=== PATIENT | female | born 1940 ===

== ENCOUNTER 2025-01-15 06:11 | Day surgery (SDC) | payer MEDICARE, OTHER, SELFPAY | END 2025-01-15 10:14 | disposition home or self-care (01) | LOC: GI 06:11 | PROVIDERS: ATTENDING PHYSICIAN Internal Medicine | DX: Z12.11 Encounter for screening for malignant neoplasm of colon (principal); K64.8 Other hemorrhoids; D12.3 Benign neoplasm of transverse colon; D12.4 Benign neoplasm of descending colon; Z86.0100 Personal history of colon polyps, unspecified | CPT/HCPCS: 45385; 45380; 88305 ==